=== PATIENT | male | born 1995 | race Caucasian/White ===

== ENCOUNTER 2018-01-14 10:10 | Emergency (ER) | payer BC ==
[~2018-01-14 10:10] MED LIST: ACE3 PO; ACET1TAB PO; ASP325 PO; AZIT-18 PO; CEPH500T7 PO; CODE118S5 PO; IBU600 PO; LOR5/325 PO; OXCA150T45 PO; PHEN120S16 PO; PROM-110 PO; RAN150 PO; [UNRECOGNIZED DRUG - CODE] PO
--- NOTE | 2018-01-14 10:34 | ER Report ---
History and Physical Time Seen By MD: 10:34 Hx. of Stated Complaint: PT REPORTS RLQ AND R LOWER BACK THAT STARTED 3 DAYS AGO HPI/ROS 22-year-old male who presents to the emergency department with 4-5 hours of right lower quadrant pain. So has loss of appetite. No fever chills, no nausea vomiting. He does report a few episodes of diarrhea. No hematemesis or hematochezia. No trauma. No urinary symptoms or hematuria. He denies pain in his testicles, and denies penile discharge. Remainder of the 14 system rev: Yes Allergies: Coded Allergies: No Known Drug Allergies (Unverified , 01/14/18) Home Meds Discontinued Scripts Promethazine Hcl (PROMETHAZINE HCL) 25 Mg Tablet, 25 MG PO Q8H Y for NAUSEA/ VOMITING, #20 TAB 0 Refills Prov:PERRY BOSE MD 04/03/15 Hydrocodone Bit/Acetaminophen (HYDROCODON-ACETAMINOPHEN 5-325) 1 Each Tablet, 1 EACH PO Q4-6H Y for PAIN, #10 TAB 0 Refills TAKE ONE TABLET BY MOUTH EVERY 4-6 HOURS NEEDED FOR PAIN Prov:PERRY BOSE MD 04/03/15 Reviewed Nurses Notes: Yes Old Medical Records Reviewed: Yes Hx Smoking: No Smoking Status: Never Smoker Hx Substance Use Disorder: No Hx Alcohol Use: No Constitutional Vital Sign - Last 24 Hours 01/14/18 01/14/18 01/14/18 01/14/18 10:13 10:18 10:25 10:30 Temp 98.4 Pulse 85 94 Resp 16 B/P (MAP) 150/80 151/80 (103) 115/81 (92) Pulse Ox 96 95 O2 Delivery Room Air 01/14/18 01/14/18 01/14/18 01/14/18 10:40 10:55 11:00 11:10 Pulse 99 86 168 B/P (MAP) 125/76 (92) Pulse Ox 96 95 96 01/14/18 01/14/18 01/14/18 11:15 11:20 11:35 Pulse 84 92 Pulse Ox 92 93 93 Physical Exam General Appearance: The patient is alert, has no immediate need for airway protection and no current signs of toxicity. Eyes: Pupils equal and round no injection. Respiratory: Chest is non tender, lungs are clear to auscultation. Cardiac: regular rate and rhythm Gastrointestinal: Abdomen is soft with mild TTP of the RLQ, no masses, bowel sounds normal. ; No testicular TTP Skin: No rashes or lesions. DIFFERENTIAL DIAGNOSIS: After history and physical exam differential diagnosis was considered for abdominal pain including but not limited to appendicitis, cholecystitis, gastritis and urinary tract infection. Medical Decision Making Data Points Result Diagram: 01/14/18 1021 01/14/18 1021 Laboratory Hematology Test 01/14/18 10:21 Red Blood Count 5.64 M/uL (4.00-5.60) Mean Corpuscular Volume 79.1 fL (80.0-96.0) Mean Corpuscular Hemoglobin 27.3 pg (26.0-33.0) Mean Corpuscular Hemoglobin Concent 34.6 g/dL (32.0-36.0) Red Cell Distribution Width 13.4 % (11.5-14.5) Mean Platelet Volume 8.5 fL (7.2-11.1) Neutrophils (%) (Auto) 78.8 % (39.4-72.5) Lymphocytes (%) (Auto) 12.7 % (17.6-49.6) Monocytes (%) (Auto) 7.3 % (4.1-12.4) Eosinophils (%) (Auto) 0.7 % (0.4-6.7) Basophils (%) (Auto) 0.5 % (0.3-1.4) Nucleated RBC Relative Count (auto) 0.1 /100WBC Neutrophils # (Auto) 6.8 K/uL (2.0-7.4) Lymphocytes # (Auto) 1.1 K/uL (1.3-3.6) Monocytes # (Auto) 0.6 K/uL (0.3-1.0) Eosinophils # (Auto) 0.1 K/uL (0.0-0.5) Basophils # (Auto) 0.0 K/uL (0.0-0.1) Nucleated RBC Absolute Count (auto) 0.01 K/uL Urine Color Yellow Urine Clarity Clear Urine pH 5.0 pH (4.8-9.5) Urine Specific [place] 1.026 Urine Protein Negative mg/dL (NEGATIVE) Urine Glucose (UA) Negative mg/dL (NEGATIVE) Urine Ketones Negative mg/dL (NEGATIVE) Urine Blood Negative (NEGATIVE) Urine Nitrite Negative (NEGATIVE) Urine Bilirubin Negative (NEGATIVE) Urine Urobilinogen Negative mg/dL (0.2-1.9) Urine Leukocyte Esterase Negative (NEGATIVE) Urine RBC <1 /HPF (0-2/HPF) Urine WBC 1 /HPF (0-5/HPF) Urine Squamous Epithelial Cells None /LPF (</=FEW) Urine Bacteria Negative /HPF (NONE-FEW) Urine Mucus Few /HPF (NONE-FEW) Sodium Level 141 mmol/L (137-145) Potassium Level 3.8 mmol/L (3.5-5.0) Chloride Level 103 mmol/L (98-107) Carbon Dioxide Level 24 mmol/L (22-30) Blood Urea Nitrogen 19 mg/dl (9-21) Creatinine 1.00 mg/dl (0.66-1.25) Glomerular Filtration Rate Calc > 60.0 Random Glucose 120 mg/dl (75-110) Calcium Level 9.3 mg/dl (8.4-10.2) Total Bilirubin 2.4 mg/dl (0.2-1.3) Aspartate Amino Transf (AST/SGOT) 32 U/L (0-35) Alanine Aminotransferase (ALT/SGPT) 46 U/L (0-56) Alkaline Phosphatase 66 U/L (0-126) Total Protein 7.9 g/dl (6.3-8.2) Albumin 4.6 g/dl (3.5-5.0) Lipase 45 U/L (23-300) Chemistry Test 01/14/18 10:21 White Blood Count 8.6 k/uL (4.5-11.0) Red Blood Count 5.64 M/uL (4.00-5.60) Hemoglobin 15.4 g/dL (14.0-18.0) Hematocrit 44.6 % (42.0-52.0) Mean Corpuscular Volume 79.1 fL (80.0-96.0) Mean Corpuscular Hemoglobin 27.3 pg (26.0-33.0) Mean Corpuscular Hemoglobin Concent 34.6 g/dL (32.0-36.0) Red Cell Distribution Width 13.4 % (11.5-14.5) Platelet Count 211 K/uL (150-450) Mean Platelet Volume 8.5 fL (7.2-11.1) Neutrophils (%) (Auto) 78.8 % (39.4-72.5) Lymphocytes (%) (Auto) 12.7 % (17.6-49.6) Monocytes (%) (Auto) 7.3 % (4.1-12.4) Eosinophils (%) (Auto) 0.7 % (0.4-6.7) Basophils (%) (Auto) 0.5 % (0.3-1.4) Nucleated RBC Relative Count (auto) 0.1 /100WBC Neutrophils # (Auto) 6.8 K/uL (2.0-7.4) Lymphocytes # (Auto) 1.1 K/uL (1.3-3.6) Monocytes # (Auto) 0.6 K/uL (0.3-1.0) Eosinophils # (Auto) 0.1 K/uL (0.0-0.5) Basophils # (Auto) 0.0 K/uL (0.0-0.1) Nucleated RBC Absolute Count (auto) 0.01 K/uL Urine Color Yellow Urine Clarity Clear Urine pH 5.0 pH (4.8-9.5) Urine Specific [place] 1.026 Urine Protein Negative mg/dL (NEGATIVE) Urine Glucose (UA) Negative mg/dL (NEGATIVE) Urine Ketones Negative mg/dL (NEGATIVE) Urine Blood Negative (NEGATIVE) Urine Nitrite Negative (NEGATIVE) Urine Bilirubin Negative (NEGATIVE) Urine Urobilinogen Negative mg/dL (0.2-1.9) Urine Leukocyte Esterase Negative (NEGATIVE) Urine RBC <1 /HPF (0-2/HPF) Urine WBC 1 /HPF (0-5/HPF) Urine Squamous Epithelial Cells None /LPF (</=FEW) Urine Bacteria Negative /HPF (NONE-FEW) Urine Mucus Few /HPF (NONE-FEW) Glomerular Filtration Rate Calc > 60.0 Calcium Level 9.3 mg/dl (8.4-10.2) Total Bilirubin 2.4 mg/dl (0.2-1.3) Aspartate Amino Transf (AST/SGOT) 32 U/L (0-35) Alanine Aminotransferase (ALT/SGPT) 46 U/L (0-56) Alkaline Phosphatase 66 U/L (0-126) Total Protein 7.9 g/dl (6.3-8.2) Albumin 4.6 g/dl (3.5-5.0) Lipase 45 U/L (23-300) Urinalysis Test 01/14/18 10:21 Urine Color Yellow Urine Clarity Clear Urine pH 5.0 pH (4.8-9.5) Urine Specific [place] 1.026 Urine Protein Negative mg/dL (NEGATIVE) Urine Glucose (UA) Negative mg/dL (NEGATIVE) Urine Ketones Negative mg/dL (NEGATIVE) Urine Blood Negative (NEGATIVE) Urine Nitrite Negative (NEGATIVE) Urine Bilirubin Negative (NEGATIVE) Urine Urobilinogen Negative mg/dL (0.2-1.9) Urine Leukocyte Esterase Negative (NEGATIVE) Urine RBC <1 /HPF (0-2/HPF) Urine WBC 1 /HPF (0-5/HPF) Urine Squamous Epithelial Cells None /LPF (</=FEW) Urine Bacteria Negative /HPF (NONE-FEW) Urine Mucus Few /HPF (NONE-FEW) ED Course/Re-evaluation ED Course 22-year-old otherwise healthy male presents to the emergency department with nausea and right lower quadrant pain that started this morning. No fever chills. No leukocytosis. He has a normal UA and no dysuria or hematuria. Denies pain in his testicles and no penile discharge. A CT scan shows a normal appendix and no evidence of a ureteral calculi. This could be a muscle strain or could be a viral enteritis. Does report diarrhea. He was given 1 L of normal saline, and feels improved. He will return to the emergency department if his symptoms worsen. Decision to Disposition Date: Jan 14, 2018 Decision to Disposition Time: 12:46 Depart Departure Latest Vital Signs Vital Signs Date Time Temp Pulse Resp B/P (MAP) Pulse Ox O2 Delivery O2 Flow Rate FiO2 01/14/18 11:35 92 93 01/14/18 11:00 125/76 (92) 01/14/18 10:13 98.4 16 Room Air Impression: Primary Impression: Abdominal pain Condition: Improved Disposition: HOME OR SELF-CARE New Scripts No Active Prescriptions or Reported Meds Patient Instructions: Acute Abdominal Pain (DC) Problem Qualifiers Primary Impression: Abdominal pain Abdominal location: right lower quadrant Qualified Codes: R10.31 - Right lower quadrant pain FREDERICK FORD MD Jan 14, 2018 10:34
[2018-01-14] MEDS ORDERED: ONDANSETRON 4 MG/2 ML VIAL IVP ONE (10:35)
[2018-01-14] MEDS ORDERED: NS(*) 0.9% 1000 ML BAG 1,000 ML IV ONE (10:35)
[2018-01-14 10:46] LABS: PLATELET COUNT, AUTOMATED 211 K/uL (150-450)
[2018-01-14] MEDS ORDERED: IOPAMIDOL 76% 100 ML INFUS BTL 100 ML ONE (11:27)
--- NOTE | 2018-01-14 11:58 | RADIOLOGY IMAGING REPORT ---
FAC[place] [facility] [place] NAME: Aakash Eastman : 1995 MR: [id number] V: [id number] EXAM DATE: ORDERING PHYSICIAN: FREDERICK FORD TECHNOLOGIST: Location: [facility] Patient: Aakash Eastman : 1995 Visit/Account:[id number] Date of Sevice: 01/14/2018 ABDOMEN/PELVIS WITH CONTRAST HISTORY: Right lower quadrant pain TECHNIQUE: Following administration of IV contrast contiguous axial images acquired through the abdom en/pelvis. Coronal and sagittal reformatting also performed. One of the following dose optimization techniques was utilized in the performance of this exam: Automated exposure control; adjustment of t he mA and/or kV according to the patient's size; or use of an iterative reconstruction technique. S pecific details can be referenced in the facility's radiology CT exam operational policy. CONTRAST: 80 mL [id number] COMPARISON: None. FINDINGS: Visualized lung bases: Negative. Hepatobiliary: Negative. Spleen: Negative. Adrenals: Negative. Pancreas: Negative. Kidneys ureters or bladder: Negative. Genitalia: Negative. GI: The appendix is retrocecal and normal in appearance. It is well visualized axial images 296-335 and coronal images 45-51. It measures 5 mm diameter. No periappendiceal fat stranding. The colon is normal. Small bowel unremarkable. Vessels/spaces/nodes: Subcentimeter lymph nodes seen right lower quadrant within normal limits in si ze. There is no adenopathy. Bones/soft tissues: There is L5-S1 spondylolysis without evidence of spondylolisthesis. Osseous str uctures otherwise normal. Additional findings: None pertinent. IMPRESSION: L5-S1 spondylolysis. Exam otherwise normal. Specifically, the appendix is well-visualized and unremarkable in appearance. Etiology of patient's abdominal pain is not identified. Report Dictated By: Tyshawn De Los Santos MD at 01/14/2018 11:47 AM Report E-Signed By: Tyshawn De Los Santos MD at 01/14/2018 11:53 AM WSN:[email or web address]
[2018-01-14 12:49] VITALS: BP 126/81
== END 2018-01-14 12:53 | disposition home or self-care (01) ==
LOC: ER 10:31
DX: R10.31 Right lower quadrant pain (principal)
CPT/HCPCS: 74177; 81001; 83690; 85025; 99284; Q9967; 82040; 82247; 82310; 82374; 82435; 82565; 82947; 84075; 84132; 84155; 84295; 84450; 84460; 84520